=== PATIENT | male | born 1975 | race Two or more races ===

== ENCOUNTER 2024-07-07 13:14 | Emergency (ER) | payer MEDICAID, OTHER ==
[~2024-07-07] VITALS: Ht 172.7 cm; Wt 91.1 kg
[2024-07-07 14:02] VITALS: BP 148/93; PULSE 75; RESP 16; TEMP 98.4; O2SAT 92
[2024-07-07] MEDS ORDERED: TRAM50TA2 PO (14:07)
== END 2024-07-07 14:45 | disposition home or self-care (01) ==
LOC: ER 13:14
DX: S39.012A Strain of muscle, fascia and tendon of lower back, initial encounter (principal); M25.511 Pain in right shoulder; E78.5 Hyperlipidemia, unspecified; Z90.49 Acquired absence of other specified parts of digestive tract; V49.88XA Car occupant (driver) (passenger) injured in other specified transport accidents, initial encounter; Y93.I9 Activity, other involving external motion; Y92.488 Other paved roadways as the place of occurrence of the external cause; Y99.8 Other external cause status
CPT/HCPCS: 72100